=== PATIENT | male | born 1955 | race Caucasian/White ===

== ENCOUNTER 2018-02-06 09:32 | Emergency (ER) | payer MEDICAID ==
[~2018-02-06] VITALS: Ht 647.4 cm; Wt 76.0 kg
[~2018-02-06 09:32] MED LIST: NO HOME MEDS
[2018-02-06 09:42] VITALS: BP 144/77
[2018-02-06] MEDS ORDERED: MUPI22OI30 TOP (09:56)
[2018-02-06] MEDS ORDERED: DOXY100T2 PO (09:56)
== END 2018-02-06 10:17 | disposition home or self-care (01) ==
LOC: ER 09:32
DX: L03.114 Cellulitis of left upper limb (principal); L03.115 Cellulitis of right lower limb; F12.90 Cannabis use, unspecified, uncomplicated; Z56.0 Unemployment, unspecified; Z59.0 Homelessness; Z88.8 Allergy status to other drugs, medicaments and biological substances; Z79.899 Other long term (current) drug therapy
CPT/HCPCS: 99283; A6222

== ENCOUNTER 2018-11-09 15:20 | Emergency (ER) | payer MEDICAID ==
[~2018-11-09] VITALS: Ht 182.9 cm; Wt 81.8 kg
[~2018-11-09 15:20] MED LIST changes: +DOXY100T2 PO
[2018-11-09 15:38] VITALS: BP 151/80
[2018-11-09 16:10] LABS: BASOPHILS % (AUTO) 0.3 % (0-1); EOSINOPHILS # (AUTO) 0.2 X10'3 (0-0.9); EOSINOPHILS % (AUTO) 1.5 % (0-6); HEMOGLOBIN 15.6 g/dl (14.0-17.9); LYMPHOCYTES # (AUTO) 1.1 X10'3 (1.1-4.8); LYMPHOCYTES % (AUTO) 7.4 % (21-51); MEAN CORPUSCULAR HEMOGLOBIN 31.2 PG (27.0-31.0); MEAN CORPUSCULAR HGB CONC 33.9 g/dL (33.0-36.5); MEAN CORPUSCULAR VOLUME 92.1 FL (78-98); MEAN PLATELET VOLUME 7.3 FL (7.4-10.4); MONOCYTES # (AUTO) 1.2 X10'3 (0-0.9); MONOCYTES % (AUTO) 7.7 % (2-12); NEUTROPHILS # (AUTO) 12.6 X10'3 (1.8-7.7); NEUTROPHILS % (AUTO) 83.1 % (42-75); PLATELET COUNT 242 X10'3 (140-440); RED CELL DISTRIBUTION WIDTH 13.6 % (11.5-14.5); WHITE BLOOD COUNT 15.1 X10'3 (4.5-11.0)
[2018-11-09 16:21] LABS: CLARITY,URINE CLEAR (Clear); COLOR,URINE YELLOW (Yellow); GLUCOSE, URINE NEGATIVE (Neg); KETONES,URINE NEGATIVE (Neg); LEUKOCYTE ESTERASE ,URINE NEGATIVE (Neg); NITRITES, URINE NEGATIVE (Neg); OCCULT BLOOD,URINE NEGATIVE (Neg); PROTEIN,URINE TRACE mg/dl (Neg); UROBILINOGEN,URINE 0.2 E.U/dL (0.2-1.0)
[2018-11-09 16:22] LABS: UA COLLECTION TYPE CLN CATCH MIDSTREAM
[2018-11-09 16:26] LABS: ALANINE AMINOTRANSFERASE 142 U/L (12-78); ALBUMIN 3.9 G/DL (3.4-5.0); ALBUMIN/GLOBULIN RATIO 0.9 (1.1-1.5); ALKALINE PHOSPHATASE 105 IU/L (46-116); ANION GAP 8 (8-16); ASPARTATE AMINO TRANSFERASE 177 U/L (10-37); BILIRUBIN,TOTAL 1.9 MG/DL (0.1-1.0); BLOOD UREA NITROGEN 10 MG/DL (7-18); BUN/CREATININE RATIO 11.6 (5.4-32.0); CALCIUM 9.1 MG/DL (8.5-10.1); CHLORIDE 102 MMOL/L (99-107); CREATININE 0.86 MG/DL (0.60-1.10); GLUCOSE 101 MG/DL (70-104); LIPASE 219 U/L (73-393); POTASSIUM 4.1 MMOL/L (3.5-5.1); SODIUM 137 MMOL/L (135-145); TOTAL CARBON DIOXIDE 26.6 MMOL/L (24-32); TOTAL PROTEIN 8.3 G/DL (6.4-8.2); eGFR 90 ML/MIN
[2018-11-09 16:39] LABS: PROTHROMBIN TIME 10.4 SECONDS (9.0-12.0)
[2018-11-09 16:58] LABS: BACTERIA,URINE NONE SEEN /HPF (Neg); RBC,URINE NONE SEEN /HPF (0-2); SQUAMOUS EPITHELIAL CELL,UR NONE SEEN /LPF (FEW); WBC,URINE NONE SEEN /HPF (0-4)
--- NOTE | 2018-11-09 18:00 | NUR ---
Called patient due to not in lobby x3 calls. [facility] left [facility] phone number and patient is not checked in at [facility]. Unable to get a hold of patient.
== END 2018-11-09 18:01 | disposition left against medical advice (07) ==
LOC: ER 15:20
DX: R10.9 Unspecified abdominal pain (principal); Z53.21 Procedure and treatment not carried out due to patient leaving prior to being seen by health care provider
CPT/HCPCS: 36415; 80053; 81001; 83690; 85025; 85610

== ENCOUNTER 2022-02-28 10:14 | Emergency (ER) | payer MEDICAID ==
[~2022-02-28] VITALS: Ht 177.8 cm; Wt 81.8 kg
[2022-02-28 10:59] VITALS: BP 140/88
--- NOTE | 2022-02-28 11:28 | NUR ---
Patient had an abundant amount of fleas and body lice all throughout hair and pina. Patient claims he has been unable to seek help due to the [facility] rejecting care. Patient was taken to the decontamination shower where all body hair was removed. the patient was given soap and shampoo to bathe himself. there was a major improvement in the patients situation and he was very grateful.
[2022-02-28] MEDS ORDERED: Ivermectin 3mg tablet PO STA (11:35)
[2022-02-28] MEDS ORDERED: Permethrin Cream 60gm TP STA (11:35)
[2022-02-28] MEDS ORDERED: cephalexin 250mg capsule PO ONE (11:35)
[2022-02-28] MEDS ORDERED: Ivermectin 3mg tablet PO ONE (11:50)
[2022-02-28] MEDS ORDERED: IVER3TAB2 PO (12:07)
[2022-02-28] MEDS ORDERED: CEPH250T PO (12:07)
== END 2022-02-28 13:01 | disposition home or self-care (01) ==
LOC: ER 10:14
DX: B85.1 Pediculosis due to Pediculus humanus corporis (principal); F12.90 Cannabis use, unspecified, uncomplicated; Z59.00 Homelessness unspecified; Z56.0 Unemployment, unspecified
CPT/HCPCS: 99283

== ENCOUNTER 2024-06-26 11:16 | Emergency (ER) | payer MEDICAID ==
[~2024-06-26] VITALS: Ht 182.9 cm; Wt 81.8 kg
[~2024-06-26 11:16] MED LIST changes: +IVER3TAB2 PO; +ONDA-243 PO
[2024-06-26] MEDS ORDERED: IBUP-1986 PO (11:54)
[2024-06-26] MEDS: ibuprofen tablet 400 MG TABLET PO ONE (12:02)
[2024-06-26] MEDS ORDERED: OMEP40CA21 PO (12:02)
[2024-06-26 12:20] VITALS: BP 138/78; PULSE 88; RESP 18; TEMP 97.7; O2SAT 99
== END 2024-06-26 12:30 | disposition home or self-care (01) ==
LOC: ER 11:17
DX: R07.89 Other chest pain (principal); R07.81 Pleurodynia; F12.90 Cannabis use, unspecified, uncomplicated; Z59.00 Homelessness unspecified; Z56.0 Unemployment, unspecified
CPT/HCPCS: 99282; 99283

== ENCOUNTER 2024-08-10 10:54 | Emergency (ER) | payer MEDICAID ==
[~2024-08-10] VITALS: Ht 182.9 cm; Wt 81.0 kg
[~2024-08-10 10:54] MED LIST changes: +IBUP-1986 PO
[2024-08-10 11:03] VITALS: BP 142/86; PULSE 100; TEMP 97.8; O2SAT 97
[2024-08-10 11:31] VITALS: RESP 16
[2024-08-10] MEDS ORDERED: CEPH500C2 PO (12:17)
[2024-08-10] MEDS: bacitracin 15gm ointment TP ONE (12:59)
== END 2024-08-10 13:00 | disposition home or self-care (01) ==
LOC: ER 10:54
DX: L03.114 Cellulitis of left upper limb (principal); F12.90 Cannabis use, unspecified, uncomplicated
CPT/HCPCS: 73090; 99284; A6258; A6449

== ENCOUNTER 2024-08-25 10:35 | Emergency (ER) | payer MEDICAID ==
[~2024-08-25] VITALS: Ht 182.9 cm; Wt 75.3 kg
[2024-08-25 10:41] VITALS: TEMP 99.4
[2024-08-25 11:48] LABS: BASOPHILS % (AUTO) 0.2 % (0-1); EOSINOPHILS % (AUTO) 0.1 % (0-6); HEMOGLOBIN 15.3 g/dl (14.0-17.9); LYMPHOCYTES # (AUTO) 0.7 X10'3 (1.1-4.8); LYMPHOCYTES % (AUTO) 3.8 % (21-51); MEAN CORPUSCULAR HGB CONC 34.9 g/dL (33.0-36.5); MEAN CORPUSCULAR VOLUME 97.4 FL (78-98); MEAN PLATELET VOLUME 6.9 FL (7.4-10.4); MONOCYTES # (AUTO) 1.7 X10'3 (0-0.9); MONOCYTES % (AUTO) 8.6 % (2-12); NEUTROPHILS % (AUTO) 87.3 % (42-75); PLATELET COUNT 478 X10'3 (140-440); RED BLOOD COUNT 4.51 X10'6 (4.70-6.10); RED CELL DISTRIBUTION WIDTH 12.9 % (11.5-14.5); WHITE BLOOD COUNT 19.4 X10'3 (4.5-11.0)
[2024-08-25 12:10] LABS: ALBUMIN 2.8 G/DL (3.4-5.0); ANION GAP 10 (8-16); BLOOD UREA NITROGEN 13 MG/DL (7-18); BUN/CREATININE RATIO 17.8 (10.0-20.0); CALCIUM 8.7 MG/DL (8.5-10.1); CHLORIDE 95 MMOL/L (99-107); CREATININE 0.73 MG/DL (0.60-1.10); GLUCOSE 94 MG/DL (70-104); POTASSIUM 3.7 MMOL/L (3.5-5.1); PRO BRAIN NATRIURETIC PEPTIDE 135 PG/ML (0-125); SODIUM 131 MMOL/L (135-145); TOTAL CARBON DIOXIDE 25.9 MMOL/L (24-32); eCRCL 105 ML/MIN; eGFR > 90 ML/MIN
[2024-08-25] MEDS: normal saline 1000ml 1,000 ML IV ONE (13:25)
[2024-08-25] MEDS: ketorolac trometh 15mg/ml vial 15 MG/ML ML IV ONE (13:28)
[2024-08-25] MEDS: CefTRIAXone 2gm/D5W 50ml BAG 50 ML IV ONE (13:30)
[2024-08-25] MEDS: azithromycin/NS 500mg/250ml 250 ML IV ONE (14:09)
[2024-08-25 15:01] LABS: ALANINE AMINOTRANSFERASE 39 U/L (12-78); ALBUMIN 2.3 G/DL (3.4-5.0); ALBUMIN/GLOBULIN RATIO 0.5 (1.1-1.5); ALKALINE PHOSPHATASE 46 IU/L (46-116); ASPARTATE AMINO TRANSFERASE 42 U/L (10-37); BILIRUBIN,DIRECT 0.4 MG/DL (0-0.3); BILIRUBIN,TOTAL 1.1 MG/DL (0.1-1.0); TOTAL PROTEIN 7.2 G/DL (6.4-8.2)
[2024-08-25] MEDS ORDERED: AZIT250T83 PO (15:37)
[2024-08-25] MEDS ORDERED: IBUP-862 PO (15:37)
[2024-08-25 16:04] VITALS: BP 147/75; PULSE 75; RESP 14; O2SAT 99
== END 2024-08-25 16:06 | disposition home or self-care (01) ==
LOC: ER 10:36
DX: J18.9 Pneumonia, unspecified organism (principal); F12.90 Cannabis use, unspecified, uncomplicated; Z59.01 Sheltered homelessness; Z79.1 Long term (current) use of non-steroidal anti-inflammatories (NSAID); Z79.899 Other long term (current) drug therapy; Z56.0 Unemployment, unspecified; Z20.822 Contact with and (suspected) exposure to COVID-19
CPT/HCPCS: 36415; 71046; 80048; 80076; 83605; 83880; 84145; 85025; 87040; 87502; 87503; 87811; 96365; 96368; 96375; 99285; J0456; J0696; J1885; J7030

== ENCOUNTER 2024-09-21 09:36 | Emergency (ER) | payer MEDICAID ==
[~2024-09-21] VITALS: Ht 182.9 cm; Wt 75.2 kg
[~2024-09-21 09:36] MED LIST changes: +IBUP-862 PO
[2024-09-21 09:46] VITALS: BP 162/97; PULSE 94; RESP 18; TEMP 98.4; O2SAT 97
== END 2024-09-21 11:40 | disposition home or self-care (01) ==
LOC: ER 09:36
DX: M72.2 Plantar fascial fibromatosis (principal); M79.671 Pain in right foot; Z79.2 Long term (current) use of antibiotics; F12.90 Cannabis use, unspecified, uncomplicated; Z79.899 Other long term (current) drug therapy; Z79.1 Long term (current) use of non-steroidal anti-inflammatories (NSAID)
CPT/HCPCS: 73630; 99283

== ENCOUNTER 2025-03-29 06:28 | Emergency (ER) | payer MEDICAID ==
[~2025-03-29] VITALS: Ht 182.9 cm; Wt 73.3 kg
[2025-03-29 06:32] VITALS: BP 138/82; PULSE 98; RESP 18; O2SAT 97
--- NOTE | 2025-03-29 07:37 | Physician Documentation ---
History of Present Illness ~ Chief Complaint: Wound Stated Complaint: BUG BITES/MULTIPLE ISSUES Time Seen by MD: 07:37 Primary Medical Doctor: None HPI 69-year-old male, presenting with concern for lice and multiple wounds He is currently homeless, and is staying at the [facility]. He has lice in his hair. He also has multiple scabs and wounds on his extremities No fever. No other acute concerns Tetanus within 5 years?: No Medication Reconciliation Allergies: Coded Allergies: No Known Allergies (Unverified , 03/29/25) Scheduled Cephalexin*Monohydrate* (Keflex*), 1 CAP PO TID Doxycycline Hyclate (Doxycycline Hyclate), 1 TAB PO Q12H Ibuprofen (Ibuprofen), 1 TAB PO Q8H Ibuprofen (Ibu), 1 TAB PO Q6H Ivermectin (Ivermectin), 5 TAB PO ONCE Scheduled PRN ONDANSETRON ODT 4mg tablet (Ondansetron Odt), 1 TABLET PO Q6H PRN for nausea/vomiting Miscellaneous Medications Home Med List (No Home Medications), (Reported) Past Medical History Past Medical History: No Pertinent History Past Surgical History: no surgical history Alcohol Use: None Drug Use: marijuana Lives with: Other Lives In: Homeless Occupation: unemployed Review of Systems Constitutional: Denies: fever Integumentary: Reports: lesions Physical Exam Vital Signs: Temperature: 98.7, Source: Oral, Heart Rate: 98, Respiratory Rate: 18, BP: 138/82, Pulse Oximetry: 97, Weight: 73.300 Oxygen Flow Rate: 0 Physical Exam General: This is a disheveled but pleasant middle-aged man HEENT: The patient has lice in his hair Heart: Mild tachycardic, appears regular Lungs: normal work of breathing, normal oxygen saturation on room air Skin: The patient has multiple scattered abrasions and wounds with mild surrounding erythema, including on his extremities and head Neuro: Alert and oriented Progress Results/Orders Results/Orders Completed Orders - ROSSANA DUPONT MD Permethrin Hair Rinse (Lice Treatment) (03/29/25 07:40) Cephalexin Capsule (Keflex Capsule) (03/29/25 09:10) Permethrin Hair Rinse (Lice Treatment) (03/29/25 09:10) Vital Signs 03/29/25 03/29/25 06:32 10:05 Temp 98.7 98.7 Pulse 98 Resp 18 B/P (MAP) 138/82 Pulse Ox 97 O2 Flow Rate 0 Medical Decision Making Additional Comment The patient was found to have lice, and was treated with a shower, we shaved his head, and treated him with permethrin. He also has multiple superficial wounds with some mild inflammatory changes that could represent early cellulitis. He will be treated with a course of Keflex. No other acute medical or surgical issues at this time. He will be discharged back to the [facility]. Departure Time of Disposition: :30 Disposition: 01 HOME / SELF CARE / HOMELESS Impression: Primary Impression: Lice Additional Impression: Wound cellulitis Condition: Improved Discharge Instructions: Cellulitis, Adult, [id number], Lice, Adult Referrals: NO PRIMARY CARE PROVIDER (PCP) Prescriptions Cephalexin*Monohydrate* (Keflex*) 500 Mg Capsule 1 CAP PO TID for 10 Days, #30 CAP Prov: ROSSANA DUPONT MD 03/29/25 Education Educated: Patient Educated regarding: diagnosis, treatment Signature Scribe Signature: [email or web address] Attestation: ROSSANA Hebert MD Mar 29, 2025 07:37
[2025-03-29] MEDS: Permethrin 1% 59ml topical rinse TP ONE ×2 (07:40→10:02)
[2025-03-29] MEDS ORDERED: CEPH-585 PO (09:32)
[2025-03-29 10:05] VITALS: TEMP 98.7
== END 2025-03-29 10:32 | disposition home or self-care (01) ==
LOC: ER 06:28
DX: L03.811 Cellulitis of head [any part, except face] (principal); B85.2 Pediculosis, unspecified; Z59.00 Homelessness unspecified
CPT/HCPCS: 99284